=== PATIENT | female | born 1950 | race Hispanic/Latino ===

== ENCOUNTER 2016-10-24 07:16 | Day surgery (SDC) | payer MEDICARE, BC ==
[2016-10-14 09:21] VITALS: BMI 38.6
[2016-10-24] MEDS ORDERED: Propofol 10 mg/ml Inj (20 ML) ONE ×2 (07:57→09:54)
[2016-10-24] MEDS ORDERED: Lidocaine 1% Inj (20ml) ONE (07:57)
[2016-10-24] MEDS ORDERED: Sodium Chloride 0.9% 1,000 ML IV SCH (08:30)
[2016-10-24] MEDS ORDERED: Methylene Blue 10 mg/ml (1ml) Inj ONE (09:46)
[2016-10-24 10:45] VITALS: O2SAT 99
[2016-10-24 11:18] VITALS: BP 118/64; PULSE 61; RESP 16; TEMP 97.5
== END 2016-10-24 11:57 | disposition home or self-care (01) ==
LOC: ENDO 07:16
PROVIDERS: ATTEND Internal Medicine Gastroenterology
DX: D12.2 Benign neoplasm of ascending colon (principal); K63.5 Polyp of colon; K57.30 Diverticulosis of large intestine without perforation or abscess without bleeding; K62.1 Rectal polyp; K64.8 Other hemorrhoids
CPT/HCPCS: 45380; 45385; 45390; 88305; J2704; J3010; J7040 ×2; Q9968

== ENCOUNTER 2017-02-25 07:18 | Day surgery (SDC) | payer MEDICARE, BC ==
[2016-10-14 09:21] VITALS: BMI 38.6
[2017-02-25 07:46] LABS: BASO # 0.05 K/mm3 (0.0-2.0); BASO % 0.5 % (0.0-3.0); EOS # 0.5 (0.0-0.7); EOS % 4.8 % (1.5-5.0); GRAN # 6.19 (1.4-6.5); GRAN % 60.9 % (50.0-68.0); HEMATOCRIT 41.9 % (36.0-48.0); LYMPH # 2.6 (1.2-3.4); LYMPH % 25.1 % (22.0-35.0); MEAN CELL VOLUME 93.7 fl (80.0-105.0); MEAN CORPUSCULAR HEMOGLOBIN 31.3 pg (25.0-35.0); MEAN CORPUSCULAR HGB CONC 33.4 g/dl (31.0-37.0); MONO # 0.9 (0.1-0.6); MONO % 8.7 % (1.0-6.0); RED CELL DISTRIBUTION WIDTH 13.4 % (11.5-14.5); WHITE BLOOD COUNT 10.2 10^3/ul (4.5-11.0)
[2017-02-25 07:54] LABS: BLOOD UREA NITROGEN 16 mg/dL (7-21); CALCIUM 9.5 mg/dL (8.4-10.5); CARBON DIOXIDE 29 mmol/L (21-33); CHLORIDE 103 mmol/L (95-110); GFR AFRICAN-AMERICAN > 60; GLUCOSE,RANDOM 110 mg/dL (70-110); POTASSIUM 3.4 mmol/L (3.6-5.0); SODIUM 141 mmol/L (132-148)
[2017-02-25 08:07] LABS: INR 0.97 (0.93-1.08); PARTIAL THROMBOPLASTIN TIME 28.2 Seconds (25.1-36.5)
[2017-02-25] MEDS ORDERED: Midazolam 2 MG/2 ML VIAL ONE (09:01)
[2017-02-25] MEDS ORDERED: Oxycodone/Acetaminophen 5/325 mg Tab PO PRN (10:38)
[2017-02-25] MEDS ORDERED: Sodium Chloride 0.45% 1,000 ML IV SCH (10:45)
[2017-02-25 11:44] VITALS: BP 138/65; PULSE 63; RESP 20; TEMP 97.5; O2SAT 96
--- NOTE | 2017-02-25 18:51 | US ---
PROCEDURE: Ultrasound-guided left thyroid fine needle aspiration biopsy. CLINICAL HISTORY: Hypothyroidism. Dominant 1.7 cm left thyroid nodule. Evaluate for malignancy PHYSICIAN(S): Boom Holman M.D. TECHNIQUE: The relative risks and indications for the procedure were explained to the patient and consent obtained. The patient was placed supine on the stretcher with the neck extended and preliminary sonography of the thyroid performed. The gland is atrophic. There is a mixed hypo and hyperechoic 1.7 cm nodule in the mid to lower left thyroid. The neck was prepped and draped in the usual sterile fashion. Conscious sedation and monitoring were provided throughout the procedure by a nurse. 1% Xylocaine was used to anesthetize the skin and soft tissues at the access site. Three passes with a 22-gauge needle were performed under ultrasound guidance for fine needle aspiration of the 1.7 cm mixed nodule in the left thyroid. The slides were reviewed by pathology and deemed adequate. The patient tolerated the procedure well. IMPRESSION: 1. Ultrasound guided fine needle aspiration of a 1.7 cm mixed nodule in the left thyroid
== END 2017-02-25 12:25 | disposition home or self-care (01) ==
LOC: SDS 07:18
PROVIDERS: ATTEND Radiology Vascular & Interventional Radiology
DX: E04.1 Nontoxic single thyroid nodule (principal); I10 Essential (primary) hypertension; E78.5 Hyperlipidemia, unspecified; K21.9 Gastro-esophageal reflux disease without esophagitis; E03.9 Hypothyroidism, unspecified
CPT/HCPCS: 10022; 36415; 80048; 85025; 85610; 85730; 88173; 88305; J2250; J2405; J3010; J7030

== ENCOUNTER 2017-12-12 22:22 | Emergency (ER) | payer MEDICARE, BC ==
[2017-12-12 22:22] VITALS: BMI 38.6
[2017-12-12] MEDS ORDERED: EnalaprilAT 1.25 mg/ml Inj IVP STA (23:08)
--- NOTE | 2017-12-12 23:11 | ED PDOC ---
Arrival/HPI - General Chief Complaint: Headache Time Seen by Provider: 12/12/17 22:29 Historian: Patient - History of Present Illness Narrative History of Present Illness (Text): 12/12/17 23:11 Yeimy Rios is a 67 year old female, whose past medical history includes hypertension, CAD, carotid stent, renal artery stent, and hypercholestrolemia, who presents to the ED complaining of high blood pressure. Patient states she was experiencing a headache earlier today and took her blood pressure which she noted to be elevated. Patient states recently changed her anti-hypertensive medication from Valsartan to Irbesartan last week. Patient denies any chest pain , shortness of breath, abdominal pain, back pain, dizziness, or any other complaints. PMD: Dr. Garcia Symptom Onset: Gradual Symptom Course: Unchanged Context: Home Past Medical History - Provider Review Nursing Documentation Reviewed: Yes - Infectious Disease Hx of Infectious Diseases: None - Reproductive Menopause: Yes - Cardiac Hx Hypertension: Yes Hx Pacemaker: No - Pulmonary Hx Chronic Obstructive Pulmonary Disease (COPD): Yes Other/Comment: Smoking - Neurological Hx Paralysis: No - HEENT Hx HEENT Disorder: No - Renal Hx Renal Disorder: Yes Other/Comment: RENAL STENT - Endocrine/Metabolic Hx Endocrine Disorders: Yes Hx Hypothyroidism: Yes - Hematological/Oncological Hx Blood Transfusions: No Hx Blood Transfusion Reaction: No - Integumentary Hx Dermatological Disorder: Yes Other/Comment: RASH - Musculoskeletal/Rheumatological Hx Musculoskeletal Disorders: No - Gastrointestinal Hx Gastroesophageal Reflux: Yes - Genitourinary/Gynecological Hx Genitourinary Disorders: No - Psychiatric Hx Emotional Abuse: No Hx Physical Abuse: No Hx Substance Use: No - Surgical History Hx Section: Yes (x1) Hx Cholecystectomy: Yes Hx Coronary Stent: Yes (x3) - Anesthesia Hx Anesthesia: Yes Hx Anesthesia Reactions: No Hx Malignant Hyperthermia: No - Suicidal Assessment Feels Threatened In Home Enviroment: No Family/Social History - Physician Review Nursing Documentation Reviewed: Yes Family/Social History: Unknown Family HX Smoking Status: Heavy Smoker > 10 Cigarettes Daily Hx Alcohol Use: No Hx Substance Use: No Allergies/Home Meds Allergies/Adverse Reactions: Allergies shrimp Adverse Reaction (Verified 12/12/17 22:59) SWELLING Home Medications: Home Meds Medication Instructions Recorded Confirmed Albuterol HFA [Ventolin HFA 90 0.09 mg IH QID PRN 07/16/15 12/13/17 mcg/actuation (8 g)] Aspirin [Ecotrin] 81 mg PO DAILY 07/16/15 12/13/17 Atorvastatin [Lipitor] 10 mg PO QAM 07/16/15 12/13/17 Clopidogrel [Plavix] 75 mg PO QAM 07/16/15 12/13/17 DiphenhydrAMINE [Benadryl] 25 mg PO Q6H PRN 07/16/15 12/13/17 Folic Acid 0.4 mg PO QAM 07/16/15 12/13/17 Propranolol [Inderal LA] 160 mg PO DAILY 12/11/15 12/13/17 Lactobacillus Rhamnosus R0011 1 cap PO DAILY 06/20/16 12/13/17 [Probiotic Digestive Care] Mesalamine [Asacol HD 800mg] 800 mg PO DAILY 06/27/16 12/13/17 Levothyroxine [Levoxyl] 0.125 mg PO DAILY 10/14/16 12/13/17 Vitamin E 400 unit PO DAILY 10/14/16 12/13/17 Tiotropium [Spiriva] 2 puff IH DAILY 02/24/17 12/13/17 Valsartan 320 mg PO DAILY 11/24/17 12/13/17 Review of Systems - Physician Review All systems were reviewed & negative as marked: Yes - Review of Systems Constitutional: Normal. absent: Fevers Eyes: Normal ENT: Normal Respiratory: Normal. absent: SOB, Cough Cardiovascular: Other (+high blood pressure). absent: Chest Pain Gastrointestinal: Normal. absent: Abdominal Pain, Diarrhea, Nausea, Vomiting Genitourinary Female: Normal. absent: Dysuria, Frequency, Hematuria, Urine Output Changes Musculoskeletal: Normal. absent: Back Pain, Neck Pain Skin: Normal. absent: Rash Neurological: Headache. absent: Dizziness Endocrine: Normal Hemo/Lymphatic: Normal Psychiatric: Normal Physical Exam Vital Signs Reviewed: Yes Vital Signs Temp Pulse Resp BP Pulse Ox 12/13/17 00:20 61 18 136/64 96 12/12/17 23:46 63 18 184/86 H 95 12/12/17 23:37 215/92 H 12/12/17 22:55 98.0 F 73 16 220/107 H 96 12/12/17 22:45 98.0 F 73 16 220/107 H 96 Temperature: Afebrile Blood Pressure: Hypertensive Pulse: Regular Respiratory Rate: Normal Appearance: Positive for: Well-Appearing, Non-Toxic, Comfortable Pain Distress: None Mental Status: Positive for: Alert and Oriented X 3 - Systems Exam Head: Present: Atraumatic, Normocephalic Pupils: Present: PERRL Extroacular Muscles: Present: EOMI Conjunctiva: Present: Normal Mouth: Present: Moist Mucous Membranes Neck: Present: Normal Range of Motion Respiratory/Chest: Present: Clear to Auscultation, Good Air Exchange. No: Respiratory Distress, Accessory Muscle Use Cardiovascular: Present: Regular Rate and Rhythm, Normal S1, S2. No: Murmurs Abdomen: No: Tenderness, Distention, Peritoneal Signs Back: Present: Normal Inspection Upper Extremity: Present: Normal Inspection. No: Cyanosis, Edema Lower Extremity: Present: Normal Inspection. No: Edema Neurological: Present: GCS=15, CN II-XII Intact, Speech Normal Skin: Present: Warm, Dry, Normal Color. No: Rashes Psychiatric: Present: Alert, Oriented x 3, Normal Insight, Normal Concentration Medical Decision Making ED Course and Treatment: 12/12/17 23:11 Impression: 67 year old female complaining of high blood pressure and headache. Plan: -- EKG -- Labs, cardiac enzymes -- Vasotec -- Reassess and disposition Progress Notes: 12/13/17 00:47 Reviewed EKG, NSR at [address] bpm[address] Non-specific ST/T wave changes. 12/13/17 01:[address] Garcia, who is aware and agrees with plan. Pt had requested she be switched back to her original Valsartan and Dr. Garcia agreed. Pt states she feels fine and was adamant that she did not want to stay in the hospital. Pt will d/c f/u with Dr. Garcia in his office on Thursday as per his instructions and to return if she develops any new/worsening symptoms. - Lab Interpretations Lab Results: 12/12/17 23:40 12/12/17 23:40 Lab Results 12/12/17 23:40: WBC 9.0, RBC 4.40, Hgb 13.4, Hct 40.8, MCV 92.7, MCH 30.5, MCHC 32.8, RDW 13.3, Plt Count 219, MPV 10.1 12/12/17 23:40: Sodium 145, Potassium 3.8, Chloride 106, Carbon Dioxide 28, Anion Gap 14, BUN 17, Creatinine 1.0, Est GFR ( Amer) > 60, Est GFR (Non- Af Amer) 55, Random Glucose 109, Calcium 9.6, Total Bilirubin 0.4, AST 23, ALT 26, Alkaline Phosphatase 78, Lactate Dehydrogenase 487, Total Creatine Kinase 109, Troponin I < 0.01, Total Protein 7.4, Albumin 4.3, Globulin 3.0, Albumin/ Globulin Ratio 1.4 I have reviewed the lab results: Yes - EKG Interpretation Interpreted by ED Physician: Yes Type: 12 lead EKG - Medication Orders Current Medication Orders: Discontinued Medications Enalaprilat (Vasotec Iv) 1.25 mg IVP STAT STA Stop: 12/12/17 23:09 Last Admin: 12/12/17 23:37 Dose: 1.25 mg MAR Blood Pressure Document 12/12/17 23:37 (Rec: 12/12/17 23:38 [id number]) Blood Pressure Blood Pressure (100/60-150/90 mm Hg) 215/92 IVP Administration Document 12/12/17 23:37 (Rec: 12/12/17 23:38 [id number]) Charges for Administration # of IVP Administrations 1 - Scribe Statement The provider has reviewed the documentation as recorded by the Scribe Yarely Bess All medical record entries made by the Scribe were at my direction and personally dictated by me. I have reviewed the chart and agree that the record accurately reflects my personal performance of the history, physical exam, medical decision making, and the department course for this patient. I have also personally directed, reviewed, and agree with the discharge instructions and disposition. Disposition/Present on Arrival - Present on Arrival Any Indicators Present on Arrival: No History of DVT/PE: No History of Uncontrolled Diabetes: No Urinary Catheter: No History of Decub. Ulcer: No History Surgical Site Infection Following: None - Disposition Have Diagnosis and Disposition been Completed?: Yes Diagnosis: Hypertension Disposition: HOME/ ROUTINE Disposition Time: 01:53 Patient Plan: Discharge Patient Problems: Current Active Problems Problem Status Onset Hypertension Acute Condition: GOOD Discharge Instructions (ExitCare): High Blood Pressure (DC) Additional Instructions: Continue with your Valsartan meds as per your doctor/follow up with your doctor on Thursday/Any recurrent symptoms return to the emergency Referrals: Alton Garcia MD [Primary Care Provider] - Follow up with primary Forms: [employer] (Lux[place]ish)
[2017-12-12 23:46] VITALS: RESP 18
[2017-12-13 00:10] LABS: HEMOGLOBIN 13.4 g/dL (12.0-16.0); MEAN CELL VOLUME 92.7 fl (80.0-105.0); MEAN CORPUSCULAR HEMOGLOBIN 30.5 pg (25.0-35.0); MEAN CORPUSCULAR HGB CONC 32.8 g/dl (31.0-37.0); MEAN PLATELET VOLUME 10.1 fl (7.0-11.0); RBC 4.4 10^6/uL (3.5-6.1); RED CELL DISTRIBUTION WIDTH 13.3 % (11.5-14.5)
[2017-12-13 00:18] LABS: ALB/GLOB RATIO 1.4 (1.1-1.8); ALBUMIN 4.3 g/dL (3.0-4.8); ALT/SGPT 26 U/L (7-56); AST/SGOT 23 U/L (14-36); BLOOD UREA NITROGEN 17 mg/dL (7-21); CALCIUM 9.6 mg/dL (8.4-10.5); GFR NON-AFRICAN AMERICAN 55
[2017-12-13 00:20] VITALS: O2SAT 96
[2017-12-13 00:30] LABS: TROPONIN I < 0.01 ng/mL
[2017-12-13 03:35] VITALS: BP 156/64; PULSE 66; TEMP 98.2
--- NOTE | 2017-12-13 12:53 | CARD ---
APPROVED REPORT Date of service: 12/13/2017 EKG Measurement Heart [id number] 156P12 [id number] <Conclusion> Normal sinus rhythm Normal ECG
== END 2017-12-13 02:05 | disposition home or self-care (01) ==
LOC: ED 22:22
DX: I10 Essential (primary) hypertension (principal); F17.210 Nicotine dependence, cigarettes, uncomplicated; E03.9 Hypothyroidism, unspecified; I25.10 Atherosclerotic heart disease of native coronary artery without angina pectoris

== ENCOUNTER 2018-03-15 22:32 | Emergency (ER) | payer MEDICARE, BC ==
[2018-03-15 22:40] VITALS: BMI 37.8
--- NOTE | 2018-03-15 23:17 | ED PDOC ---
Arrival/HPI - General Chief Complaint: High Blood Pressure Historian: Patient - History of Present Illness Narrative History of Present Illness (Text): 03/15/18 23:16 67 year old female, whose past medical history includes hypertension, hyperthyroidism, CAD, and TIA, presents to the emergency department by EMS for elevated blood pressure, since today. Patient stated her blood pressure has not been well controlled for the past few weeks. Patient states earlier today her bp was 190/101. Patient states she then took her Clonidine and blood pressure improved. Patient informs she kept checking it and in the evening it annie again. Patient states she took 5mg hydralazine before coming to the emergency department. Patient denies any somatic complaints. Patient denies any headache, dizziness, chest pain, shortness of breath, focal weakness, or any other complaint. Time/Duration: 24 hours (worsened today), < month (uncontrolled bp for few weeks) Past Medical History - Provider Review Nursing Documentation Reviewed: Yes - Infectious Disease Hx of Infectious Diseases: None - Cardiac Hx Cardiac Disorders: No - Pulmonary Hx Respiratory Disorders: Yes Hx Chronic Obstructive Pulmonary Disease (COPD): Yes Other/Comment: Smoking - Neurological Hx Neurological Disorder: No - HEENT Hx HEENT Disorder: No - Renal Hx Renal Disorder: Yes Other/Comment: RENAL STENT - Endocrine/Metabolic Hx Endocrine Disorders: Yes Hx Hypothyroidism: Yes - Hematological/Oncological Hx Blood Disorders: No - Integumentary Hx Dermatological Disorder: Yes Other/Comment: RASH - Musculoskeletal/Rheumatological Hx Musculoskeletal Disorders: No - Gastrointestinal Hx Gastrointestinal Disorders: Yes Hx Gastroesophageal Reflux: Yes - Genitourinary/Gynecological Hx Genitourinary Disorders: No - Psychiatric Hx Psychophysiologic Disorder: No Hx Substance Use: No - Surgical History Hx Section: Yes (x1) Hx Cholecystectomy: Yes Hx Coronary Stent: Yes (x3) - Anesthesia Hx Anesthesia Reactions: No Hx Malignant Hyperthermia: No - Suicidal Assessment Feels Threatened In Home Enviroment: No Family/Social History - Physician Review Nursing Documentation Reviewed: Yes Family/Social History: No Known Family HX Smoking Status: Heavy Smoker > 10 Cigarettes Daily Hx Alcohol Use: No Hx Substance Use: No Allergies/Home Meds Allergies/Adverse Reactions: Allergies shrimp Adverse Reaction (Verified 03/15/18 22:40) SWELLING Home Medications: Home Meds Medication Instructions Recorded Confirmed Albuterol HFA [Ventolin HFA 90 0.09 mg IH QID PRN 07/16/15 03/15/18 mcg/actuation (8 g)] Aspirin [Ecotrin] 81 mg PO DAILY 07/16/15 03/15/18 Atorvastatin [Lipitor] 10 mg PO QAM 07/16/15 03/15/18 Clopidogrel [Plavix] 75 mg PO QAM 07/16/15 03/15/18 Folic Acid 0.4 mg PO QAM 07/16/15 03/15/18 Propranolol [Inderal LA] 160 mg PO DAILY 12/11/15 03/15/18 Lactobacillus Rhamnosus R0011 1 cap PO DAILY 06/20/16 03/15/18 [Probiotic Digestive Care] Mesalamine [Asacol HD 800mg] 800 mg PO DAILY 06/27/16 03/15/18 Vitamin E 400 unit PO DAILY 10/14/16 03/15/18 Tiotropium [Spiriva] 2 puff IH DAILY 02/24/17 03/15/18 Hydrochlorothiazide [Microzide] 25 mg PO DAILY PRN 01/12/18 03/15/18 Valsartan/Hydrochlorothiazide 1 each PO DAILY 01/12/18 03/15/18 [Diovan Hct 320-25 mg Tablet] cloNIDine [clonidine HCl] 0.1 mg PO Q6 PRN 01/12/18 03/15/18 hydrALAZINE [hydralazine 10 mg PO TID 01/12/18 03/15/18 Hydrochloride] Levothyroxine Sodium [Levothroid] 125 mcg PO DAILY 03/15/18 03/15/18 Review of Systems - Physician Review All systems were reviewed & negative as marked: Yes - Review of Systems Respiratory: absent: SOB Cardiovascular: absent: Chest Pain Neurological: absent: Headache, Dizziness, Focal Weakness Physical Exam Vital Signs Reviewed: Yes Vital Signs Temp Pulse Resp BP Pulse Ox 03/15/18 22:42 97.8 F 65 18 159/70 H 100 Temperature: Afebrile Blood Pressure: Hypertensive Pulse: Regular Respiratory Rate: Normal Appearance: Positive for: Well-Appearing, Non-Toxic, Comfortable Pain Distress: None Mental Status: Positive for: Alert and Oriented X 3 - Systems Exam Head: Present: Atraumatic, Normocephalic Pupils: Present: PERRL Extroacular Muscles: Present: EOMI Conjunctiva: Present: Normal Mouth: Present: Moist Mucous Membranes Neck: Present: Normal Range of Motion Respiratory/Chest: Present: Clear to Auscultation, Good Air Exchange. No: Respiratory Distress, Accessory Muscle Use Cardiovascular: Present: Regular Rate and Rhythm, Normal S1, S2. No: Murmurs Abdomen: No: Tenderness, Distention, Peritoneal Signs Back: Present: Normal Inspection Upper Extremity: Present: Normal Inspection. No: Cyanosis, Edema Lower Extremity: Present: Normal Inspection. No: Edema Neurological: Present: GCS=15, CN II-XII Intact, Speech Normal Skin: Present: Warm, Dry, Normal Color. No: Rashes Psychiatric: Present: Alert, Oriented x 3, Normal Insight, Normal Concentration Medical Decision Making ED Course and Treatment: 03/15/18 23:24 Impression: 67 year old female presents with elevated blood pressure. Plan: -- EKG -- Labs -- Urinalysis -- Reassess and disposition Prior Visits: Notes and results from previous visits were reviewed. Progress Notes: 03/16/18 00:43 PT was observed in ED and repeat BP improved EKG NSR @ 61bpm Lab was unremarkable All result was DW the pt and she was DC home to f//u with her PMD - Scribe Statement The provider has reviewed the documentation as recorded by the Scribe oBom Calhoun Provider Scribe Attestation: All medical record entries made by the Scribe were at my direction and personally dictated by me. I have reviewed the chart and agree that the record accurately reflects my personal performance of the history, physical exam, medical decision making, and the department course for this patient. I have also personally directed, reviewed, and agree with the discharge instructions and disposition. Disposition/Present on Arrival - Present on Arrival Any Indicators Present on Arrival: No History of DVT/PE: No History of Uncontrolled Diabetes: No Urinary Catheter: No History of Decub. Ulcer: No History Surgical Site Infection Following: None - Disposition Have Diagnosis and Disposition been Completed?: Yes Diagnosis: Benign hypertension Disposition: HOME/ ROUTINE Disposition Time: 00:45 Patient Plan: Discharge Patient Problems: Current Active Problems Problem Status Onset Benign hypertension Acute Condition: STABLE Discharge Instructions (ExitCare): High Blood Pressure in Adults Additional Instructions: Follow up with your Doctor Return to ED for any new or worsening symptoms Referrals: Alton Garcia MD [Primary Care Provider] - Follow up with primary Forms: [employer] (Polish)
[2018-03-15 23:37] LABS: BASO # 0.03 K/mm3 (0.0-2.0); BASO % 0.5 % (0.0-3.0); EOS # 0.3 (0.0-0.7); EOS % 4.5 % (1.5-5.0); GRAN # 3.84 (1.4-6.5); GRAN % 58.2 % (50.0-68.0); HEMOGLOBIN 12.4 g/dL (12.0-16.0); LYMPH # 1.9 (1.2-3.4); LYMPH % 28.5 % (22.0-35.0); MEAN CELL VOLUME 94.5 fl (80.0-105.0); MEAN CORPUSCULAR HEMOGLOBIN 30.9 pg (25.0-35.0); MEAN CORPUSCULAR HGB CONC 32.7 g/dl (31.0-37.0); MEAN PLATELET VOLUME 9.6 fl (7.0-11.0); MONO # 0.6 (0.1-0.6); MONO % 8.3 % (1.0-6.0); RBC 4.01 10^6/uL (3.5-6.1); RED CELL DISTRIBUTION WIDTH 13.4 % (11.5-14.5); WHITE BLOOD COUNT 6.6 10^3/uL (4.5-11.0)
[2018-03-15 23:45] LABS: INR 1.01; PARTIAL THROMBOPLASTIN TIME 27.9 Seconds (25.1-36.5); PROTHROMBIN TIME 11.5 SECONDS (9.4-12.5)
[2018-03-15 23:50] LABS: ALB/GLOB RATIO 1.2 (1.1-1.8); ALBUMIN 3.8 g/dL (3.0-4.8); ALT/SGPT 29 U/L (7-56); AST/SGOT 21 U/L (14-36); BLOOD UREA NITROGEN 17 mg/dL (7-21); CALCIUM 9.1 mg/dL (8.4-10.5); GFR NON-AFRICAN AMERICAN > 60
[2018-03-16 00:01] LABS: TROPONIN I < 0.01 ng/mL
[2018-03-16 00:11] VITALS: O2SAT 98
[2018-03-16 00:59] VITALS: BP 136/77; PULSE 68; RESP 18; TEMP 98
--- NOTE | 2018-03-16 15:13 | CARD ---
APPROVED REPORT Date of service: 03/15/2018 EKG Measurement Heart [id number] [id number] <Conclusion> Normal sinus rhythm Septal infarct, age undetermined Abnormal ECG
== END 2018-03-16 00:59 | disposition home or self-care (01) ==
LOC: ED 22:32
DX: I10 Essential (primary) hypertension (principal); I25.10 Atherosclerotic heart disease of native coronary artery without angina pectoris; J44.9 Chronic obstructive pulmonary disease, unspecified; Z86.73 Personal history of transient ischemic attack (TIA), and cerebral infarction without residual deficits; Z95.5 Presence of coronary angioplasty implant and graft; F17.210 Nicotine dependence, cigarettes, uncomplicated

== ENCOUNTER 2018-08-20 09:33 | Outpatient (CLI) | payer MEDICARE | END 2018-08-20 09:34 | disposition home or self-care (01) | LOC: RAD 09:33 | DX: Z12.31 Encounter for screening mammogram for malignant neoplasm of breast (principal) ==